=== PATIENT | female | born 1975 | race Caucasian/White ===

== ENCOUNTER 2019-07-29 20:09 | Emergency (ER) | payer OTHER, MEDICAID ==
[~2019-07-29] VITALS: Ht 170.2 cm; Wt 81.7 kg
[2019-07-29] MEDS ORDERED: STELARA90 MG/1 ML PO (20:59)
[2019-07-29] MEDS ORDERED: ABILIFY20 MG PO (20:59)
[2019-07-29] MEDS ORDERED: FOLBIC RF TABL1 EACH IM (21:00)
[2019-07-29] MEDS ORDERED: TRAZODONE HCL100 MG PO (21:00)
[2019-07-29 21:09] LABS: URINE BILIRUBIN NEGATIVE (Negative); URINE BLOOD 2+ (Negative); URINE CLARITY SL CLOUDY; URINE COLOR YELLOW; URINE GLUCOSE-RANDOM NEGATIVE (Negative); URINE KETONES NEGATIVE (Negative); URINE LEUKOCYTES-REFLEX 2+ (Negative); URINE NITRITE-REFLEX NEGATIVE (Negative); URINE PROTEIN NEGATIVE (Negative); URINE SPECIFIC GRAVITY 1.025 (1.005-1.030); URINE UROBILINOGEN 0.2 E.U./dl (0.2-1.0)
[2019-07-29] MEDS ORDERED: DOXYCYCLINE 10100 MG PO (21:13)
[2019-07-29 21:20] LABS: BACTERIA-REFLEX >30 Many /HPF (None Seen); CASTS None Seen /LPF (None Seen); MUCUS 4-6 Moderate strn/LPF (None Seen); SQUAMOUS 0-3 Few /LPF (0-3); URINE RBC >20 Many /HPF (0-2); URINE WBC-REFLEX >25 Many /HPF (0-5); WBC CLUMPS Moderate (None Seen)
[2019-07-29 21:21] LABS: CRYSTALS None Seen /LPF (None Seen)
[2019-07-29] MEDS ORDERED: FLAGYL500 M1 PO (21:27)
[2019-07-29 21:48] VITALS: BP 125/86
== END 2019-07-29 21:48 | disposition home or self-care (01) ==
LOC: M.ERS 20:09
PROVIDERS: Physician Assistant
DX: N39.0 Urinary tract infection, site not specified (principal); N76.0 Acute vaginitis; B96.89 Other specified bacterial agents as the cause of diseases classified elsewhere; A59.9 Trichomoniasis, unspecified; F17.210 Nicotine dependence, cigarettes, uncomplicated

== ENCOUNTER → 2020-11-18 | Outpatient (CLI) | payer OTHER, MEDICAID ==
[~2020-11-18] MED LIST: ABILIFY20 MG PO; DOXYCYCLINE 10100 MG PO; FLAGYL500 M1 PO; FOLBIC RF TABL1 EACH IM; STELARA90 MG/1 ML PO; TRAZODONE HCL100 MG PO
[2020-11-18 18:48] LABS: ABSOLUTE EOSINOPHILS 0.4 thou/uL (0.0-0.7); ABSOLUTE LYMPHOCYTES 2.7 thou/uL (0.8-5.3); ABSOLUTE MONOCYTES 0.4 thou/uL (0.0-1.2); ABSOLUTE NEUTROPHILS 2.6 thou/uL (1.6-8.1); BASOPHILS 0.5 %; EOSINOPHILS 7.2 %; HEMATOCRIT 40.4 % (37.0-47.0); HEMOGLOBIN 13.1 gm/dL (12.0-15.0); LYMPHOCYTES 43.9 %; MCH 28.9 pg (26.0-34.0); MCHC 32.4 g/dL (28.0-37.0); MCV 89.2 fL (80.0-100.0); MONOCYTES 6.1 %; MPV 9.2 fl. (7.2-11.1); NUCLEATED RBCS 0 /100WBC; PLATELET COUNT* 211 thou/uL (150-400); POLYS 42.3 %; RBC 4.53 mil/uL (4.20-5.00); WBC 6.1 thou/uL (4.0-11.0)
[2020-11-18 18:49] LABS: URINE BILIRUBIN NEGATIVE (Negative); URINE BLOOD NEGATIVE (Negative); URINE CLARITY CLEAR; URINE COLOR YELLOW; URINE GLUCOSE-RANDOM NEGATIVE (Negative); URINE KETONES NEGATIVE (Negative); URINE LEUKOCYTES NEGATIVE (Negative); URINE NITRITE NEGATIVE (Negative); URINE PROTEIN NEGATIVE (Negative); URINE UROBILINOGEN 0.2 E.U./dl (0.2-1.0)
== END ==
LOC: M.LAB 18:25
DX: R31.9 Hematuria, unspecified (principal); L65.9 Nonscarring hair loss, unspecified

== ENCOUNTER → 2021-02-04 | Outpatient (CLI) | payer OTHER, MEDICAID ==
[2021-02-04 15:27] LABS: URINE BILIRUBIN NEGATIVE (Negative); URINE BLOOD NEGATIVE (Negative); URINE CLARITY CLEAR; URINE COLOR YELLOW; URINE GLUCOSE-RANDOM NEGATIVE (Negative); URINE KETONES NEGATIVE (Negative); URINE LEUKOCYTES-REFLEX NEGATIVE (Negative); URINE NITRITE-REFLEX NEGATIVE (Negative); URINE PROTEIN NEGATIVE (Negative); URINE SPECIFIC GRAVITY >= 1.030 (1.005-1.030); URINE UROBILINOGEN 0.2 E.U./dl (0.2-1.0)
[2021-02-04 15:28] LABS: ABSOLUTE BASOPHILS 0.1 thou/uL (0.0-0.2); ABSOLUTE EOSINOPHILS 0.3 thou/uL (0.0-0.7); ABSOLUTE LYMPHOCYTES 2.3 thou/uL (0.8-5.3); ABSOLUTE MONOCYTES 0.4 thou/uL (0.0-1.2); ABSOLUTE NEUTROPHILS 3.6 thou/uL (1.6-8.1); BASOPHILS 0.9 %; EOSINOPHILS 4.9 %; HEMATOCRIT 38.9 % (37.0-47.0); HEMOGLOBIN 12.9 gm/dL (12.0-15.0); LYMPHOCYTES 34.8 %; MCH 30.1 pg (26.0-34.0); MCHC 33.2 g/dL (28.0-37.0); MCV 90.6 fL (80.0-100.0); MONOCYTES 5.8 %; MPV 8.6 fl. (7.2-11.1); NUCLEATED RBCS 0 /100WBC; PLATELET COUNT* 229 thou/uL (150-400); POLYS 53.6 %; RBC 4.29 mil/uL (4.20-5.00); RDW-CV 14.2 % (10.5-14.5); WBC 6.7 thou/uL (4.0-11.0)
[2021-02-04 15:47] LABS: ALBUMIN 4.1 g/dL (3.4-5.0); CALCIUM 9.1 mg/dL (8.5-10.1); POTASSIUM 3.3 mmol/L (3.5-5.1); TOTAL BILIRUBIN 0.5 mg/dL (<0.1-1.0)
[2021-02-05 18:06] LABS: ANA INTERPRETATION Negative (())
== END ==
LOC: M.LAB 15:00
PROVIDERS: ATTEND Internal Medicine
DX: L65.9 Nonscarring hair loss, unspecified (principal); F41.9 Anxiety disorder, unspecified; F43.9 Reaction to severe stress, unspecified; D50.8 Other iron deficiency anemias

== ENCOUNTER → 2021-05-20 | Outpatient (CLI) | payer OTHER, MEDICAID ==
[2021-05-20 10:26] LABS: ABSOLUTE EOSINOPHILS 0.4 thou/uL (0.0-0.7); ABSOLUTE LYMPHOCYTES 2.1 thou/uL (0.8-5.3); ABSOLUTE MONOCYTES 0.4 thou/uL (0.0-1.2); ABSOLUTE NEUTROPHILS 2.7 thou/uL (1.6-8.1); BASOPHILS 0.6 %; EOSINOPHILS 6.9 %; HEMATOCRIT 38.7 % (37.0-47.0); HEMOGLOBIN 12.4 gm/dL (12.0-15.0); LYMPHOCYTES 37.2 %; MCH 28.9 pg (26.0-34.0); MCV 90.2 fL (80.0-100.0); MONOCYTES 6.7 %; MPV 8.8 fl. (7.2-11.1); NUCLEATED RBCS 0 /100WBC; PLATELET COUNT* 189 thou/uL (150-400); POLYS 48.6 %; RBC 4.29 mil/uL (4.20-5.00); RDW-CV 14.1 % (10.5-14.5); WBC 5.6 thou/uL (4.0-11.0)
[2021-05-20 10:37] LABS: APTT 24.8 Seconds (25.0-31.3); INR 0.9
[2021-05-20 10:47] LABS: POTASSIUM 3.8 mmol/L (3.5-5.1); TOTAL BILIRUBIN 0.4 mg/dL (<0.1-1.0)
--- NOTE | 2021-05-20 17:10 | EKG ---
[place] [address] ELECTROCARDIOGRAM REPORT Name: BENITA ALONSO Room: [facility]#: [id number] Admission: 05/20/21 Attend Phys: Dilma Nails Discharge: Date of : 79 Date of Service: 05/20/21 1110 Report #: [id number] THIS REPORT FOR: //name// [facility] Test Date: 2021-05-20 Test Time: 11:10:32 Pat Name: BENITA ALONSO Department: Room: Gender: F Operating Room Nurse: CHICA : [id number] Requested By: Azra Palmer Order Number: [id number] Roseann MD: Robert Mckinney Measurements Intervals [place] Rate: 77 P: 69 NV: 136 QRS: 41 QRSD: 86 T: 30 QT: 372 QTc: 421 Interpretive Statements Sinus rhythm Left atrial enlargement RSR' in V1 or V2, probably normal variant No previous ECG available for comparison Electronically Signed On 05-20-2021 17:09:58 CDT by Robert Mckinney [email or web address] <ELECTRONICALLY SIGNED> By: Robert Mckinney MD, [facility] 05/20/21 1709 1110 1110 Robert Mckinney MD, [facility] /EPI
== END ==
LOC: M.LAB 09:54 → M.RAD 09:54
DX: Z01.818 Encounter for other preprocedural examination (principal); M19.011 Primary osteoarthritis, right shoulder; I51.7 Cardiomegaly; E66.01 Morbid (severe) obesity due to excess calories